=== PATIENT | male | born 1985 | race Caucasian/White ===

== ENCOUNTER 2023-03-28 17:59 | Emergency (ER) | payer SELFPAY ==
--- OUTSIDE RECORDS SUMMARY | 2023-03-28 18:02 | XMS REPORT | Continuity of Care Document ---
:1985 Author Organization [facility] t Address [address] [place] [address] Care Team Providers Name Role Phone Unavailable Unavailable Unavailable Payers Payer Name Policy Type Policy Number Effective Date Expiration Date S ource Problems This patient has no known problems. Allergies, Adverse Reactions, Alerts Allergy Allergy Status Severity Reaction(s) Onset Inactive Treating Comm ents Source Name Type Date Date Clinician No Known DA Active U 2017-10 [facility] Allergie 11-03 [facility] s 00:00: [facility] Medications This patient has no known medications. Procedures This patient has no known procedures. Results This patient has no known results.
[2023-03-28] MEDS ORDERED: IBUPROFEN 400 MG TAB ONE (18:58)
--- NOTE | 2023-03-28 19:13 | ER ---
Nurse's Notes [facility] Name: Villa Harper Age: 37 yrs Sex: Male : 1985 Arrival Date: 03/28/2023 Time: 17:59 Bed DX3 Private MD: Diagnosis: Streptococcal pharyngitis Presentation: 03/28 18:07 Chief complaint: Patient states: Flu like symptoms onset this morning. Patient denies cm10 any sick contacts. Pt reports chills and generalized body aches and decreased appetite. Coronavirus screen: Vaccine status: Patient reports being unvaccinated. Ebola Screen: No symptoms or risks identified at this time. Initial Sepsis Screen: Does the patient meet any 2 criteria? No. Patient's initial sepsis screen is negative. Does the patient have a suspected source of infection? No. Patient's initial sepsis screen is negative. Risk Assessment: Do you want to hurt yourself or someone else? Patient reports no desire to harm self or others. Onset of symptoms was March 28, 2023. 18:07 Method Of Arrival: Ambulatory cm10 18:07 Acuity: FIORELLA 4 cm10 Triage Assessment: 18:10 General: Appears in no apparent distress. comfortable, Behavior is calm, cooperative. cm10 Neuro: No deficits noted. Level of Consciousness is awake, alert, Oriented to person, place, time, situation. Respiratory: No deficits noted. Airway is patent Respiratory effort is even, unlabored, Respiratory pattern is regular, symmetrical. 19:42 Pain: Complains of pain in body aches. kd3 Historical: - Allergies: 18:09 No Known Allergies; cm10 - Home Meds: 18:09 None [Active]; cm10 - PMHx: 18:09 None; cm10 - PSHx: 18:09 Unable to Obtain; cm10 - Immunization history:: Adult Immunizations unknown. - Social history:: Smoking status: Patient denies any tobacco usage or history of. Screenin:[facility] ED Fall Risk Assessment (Adult) History of falling in the last 3 months, kd3 including since admission No falls in past 3 months (0 pts) Confusion or Disorientation No (0 pts) Intoxicated or Sedated No (0 pts) Impaired Gait No (0 pts) Mobility Assist Device Used No (0 pt) Altered Elimination No (0 pt) Score/Fall Risk Level 0 - 2 = Low Risk Maintained a safe environment. Abuse screen: Denies threats or abuse. Denies injuries from another. Nutritional screening: No deficits noted. Tuberculosis screening: No symptoms or risk factors identified. Vital Signs: 18:07 BP 118 / 69; Pulse 86; Resp 16; Temp 100.4; Pulse Ox 99% on R/A; Weight 74.84 kg; cm10 Height 5 ft. 7 in. ; Pain 7/10; 19:32 Resp 19; Temp 99.1(O); kd3 18:07 Body Mass Index 25.84 (74.84 kg, 170.18 cm) cm10 18:07 Pain Scale: Adult cm10 ED Course: 18:02 Patient arrived in ED. mr 18:05 Eagle Adrian PA is PHCP. [facility] 18:05 Gal Norwood MD is Attending Physician. [facility] 18:09 Triage completed. cm10 18:10 Arm band placed on Patient placed in waiting room. cm10 18:18 SARS-COV-2 RT PCR Sent. ll1 18:18 Strep Sent. ll1 18:18 Influenza Screen (a \T\ B) Sent. ll1 19:32 Sarita Vang, VIPUL is Primary Nurse. kd3 19:42 Patient has correct armband on for positive identification. kd3 19:42 No provider procedures requiring assistance completed. Patient did not have IV access kd3 during this emergency room visit. Administered Medications: 19:01 Drug: Ibuprofen PO 800 mg Route: PO; ld1 19:41 Drug: Amoxicillin PO 875 mg Route: PO; kd3 19:41 Drug: Dexamethasone IM 10 mg Route: IM; Site: left deltoid; kd3 Medication: 19:42 VIS not applicable for this client. kd3 Outcome: 19:13 Discharge ordered by . [facility] 19:42 Discharged to home ambulatory. kd3 19:42 Condition: stable 19:42 Discharge instructions given to patient, Instructed on discharge instructions, follow up and referral plans. medication usage, Demonstrated understanding of instructions, follow-up care, medications, Prescriptions given X 1. 19:42 Patient left the ED. kd3 Signatures: Eagle Adrian PA PA perri JeremiSowmya Kenn Funk RN RN 1 Dyan Santizo RN RN 1 Sarita Vang, RN RN kd3 Fiona Schwarz, RN RN cm10
--- NOTE | 2023-03-28 19:14 | EDPHYS ---
Physician Documentation [facility] Name: Villa Harper Age: 37 yrs Sex: Male : 1985 Arrival Date: 03/28/2023 Time: 17:59 Bed DX3 Private MD: ED Physician Gal Norwood HPI: 03/28 18:11 This 37 yrs old Male presents to ER via Ambulatory with complaints of Flu Symptoms. jmm 18:11 The patient presents with sore throat. Onset: The symptoms/episode began/occurred jmm gradually, 1 day(s) ago. Modifying factors: The symptoms are alleviated by nothing, the symptoms are aggravated by nothing. Associated signs and symptoms: Pertinent positives: fever, headache. The patient has experienced similar episodes in the past. Historical: - Allergies: 18:09 No Known Allergies; cm10 - Home Meds: 18:09 None [Active]; cm10 - PMHx: 18:09 None; cm10 - PSHx: 18:09 Unable to Obtain; cm10 - Immunization history:: Adult Immunizations unknown. - Social history:: Smoking status: Patient denies any tobacco usage or history of. ROS: 18:11 Constitutional: Positive for fever. jmm 18:11 ENT: Positive for sore throat. 18:11 All other systems are negative. Exam: 18:11 Constitutional: This is a well developed, well nourished patient who is awake, alert, jmm and in no acute distress. Head/Face: atraumatic. Eyes: EOMI, no conjunctival erythema appreciated 18:11 Chest/axilla: Normal chest wall appearance and motion. Cardiovascular: Regular rate and rhythm. No edema appreciated Respiratory: Normal respirations, no respiratory distress appreciated Abdomen/GI: Non distended Back: Normal ROM Skin: General appearance color normal MS/ Extremity: Moves all extremities, no obvious deformities appreciated, no edema noted to the lower extremities Neuro: Awake and alert Psych: Behavior is normal, Mood is normal, Patient is cooperative and pleasant 18:11 ENT: Posterior pharynx: Tonsils: with erythema, erythema, that is moderate. 18:11 ENT: Posterior pharynx: Uvula: midline. Vital Signs: 18:07 BP 118 / 69; Pulse 86; Resp 16; Temp 100.4; Pulse Ox 99% on R/A; Weight 74.84 kg; cm10 Height 5 ft. 7 in. ; Pain 04/15; 19:32 Resp 19; Temp 99.1(O); kd3 18:07 Body Mass Index 25.84 (74.84 kg, 170.18 cm) cm10 18:07 Pain Scale: Adult cm10 MDM: 18:21 Patient medically screened. [facility] 19:10 Data reviewed: vital signs, nurses notes. I considered the following discharge [facility] prescriptions or medication management in the emergency department Medications were administered in the Emergency Department. See MAR. Counseling: I had a detailed discussion with the patient and/or guardian regarding: the historical points, exam findings, and any diagnostic results supporting the discharge/admit diagnosis, the need for outpatient follow up, to return to the emergency department if symptoms worsen or persist or if there are any questions or concerns that arise at home. 03/28 18:10 Order name: Influenza Screen (a \T\ B); Complete Time: 19:06 [facility] 03/28 18:10 Order name: Strep; Complete Time: 19:06 [facility] 03/28 18:10 Order name: SARS-COV-2 RT PCR; Complete Time: 19:06 [facility] Administered Medications: 19:01 Drug: Ibuprofen PO 800 mg Route: PO; ld1 19:41 Drug: Amoxicillin PO 875 mg Route: PO; kd3 19:41 Drug: Dexamethasone IM 10 mg Route: IM; Site: left deltoid; kd3 Disposition: 03/29 10:00 Co-signature as Attending Physician, Gal Norwood MD I reviewed the patient's care rt provided by the Advanced Practice Provider and agree with the diagnosis and treatment plan. Disposition Summary: 03/28/23 19:13 Discharge Ordered Location: Home [facility] Condition: Stable [facility] Diagnosis - Streptococcal pharyngitis [facility] Followup: [facility] - With: Private Physician - When: 2 - 3 days - Reason: Recheck today's complaints, Continuance of care, Re-evaluation by your physician Discharge Instructions: - Discharge Summary Sheet [facility] - Strep Throat, Adult [facility] Forms: - Medication Reconciliation Form [facility] - Thank You Letter [facility] - Antibiotic Education [facility] - Prescription Opioid Use [facility] - Work release form kd3 Prescriptions: - Amoxicillin 875 mg Oral Tablet - take 1 tablet by ORAL route every 12 hours for 10 days; 20 tablet; Refills: 0, [facility] Product Selection Permitted Signatures: Dispatcher [employer] Eagle Hurst PA PA jmm Sims, Lauren, RN RN ld1 Sarita Vang, RN RN kd3 Gal Norwood MD MD rt Fiona Schwarz, RN RN cm10
[2023-03-28] MEDS ORDERED: AMOX/K CLAV 875 MG TAB ONE (19:44)
[2023-03-28] MEDS ORDERED: dexAMETHasone 10 MG/ML VIAL ONE (19:44)
[2023-03-28 19:47] VITALS: BP 118/69; O2SAT 99
[2023-03-28 19:48] VITALS: TEMP 99.1
== END 2023-03-28 19:42 | disposition home or self-care (01) ==
LOC: ER 17:59
DX: J02.0 Streptococcal pharyngitis (principal); Z20.822 Contact with and (suspected) exposure to COVID-19
CPT/HCPCS: 87081; 87635; 87804; 96372; 99284; J1100